=== PATIENT | female | born 1960 | race Caucasian/White ===

== ENCOUNTER 2021-11-13 09:40 | Outpatient (CLI) | payer BC | END 2021-11-13 23:59 | disposition home or self-care (01) | LOC: LAB 09:40 | PROVIDERS: ATTEND Internal Medicine | DX: M47.814 Spondylosis without myelopathy or radiculopathy, thoracic region (principal); M48.04 Spinal stenosis, thoracic region; M41.84 Other forms of scoliosis, thoracic region; M25.78 Osteophyte, vertebrae; E03.9 Hypothyroidism, unspecified; M79.671 Pain in right foot | CPT/HCPCS: 36415; 72074; 73630; 84443 ==

== ENCOUNTER 2023-04-28 09:51 | Outpatient (CLI) | payer BC | END 2023-04-28 23:59 | disposition home or self-care (01) | LOC: LAB 09:51 | PROVIDERS: ATTEND Internal Medicine | DX: E05.90 Thyrotoxicosis, unspecified without thyrotoxic crisis or storm (principal) | CPT/HCPCS: 36415; 84443 ==